=== PATIENT | female | born 1970 ===

== ENCOUNTER 2017-12-20 08:49 | Inpatient (IN) | payer MEDICAID ==
[2017-12-20] MEDS ORDERED: Sodium Chloride 0.9% 1,000 ML IV ONE (09:39)
--- NOTE | 2017-12-20 09:42 | C.PDOC ---
History Of Present Illness 47 years old female presents to ED for complaints of epigastric RUQ abdominal pain that began last night. Denies nausea, vomiting, diarrhea, or allergies to any medications. Patient states Hx of hernia repair 5 months ago. Patient also reports she did not get her menstrual cycle last month and was due for "gall bladder stones test" but did not get it done. Time Seen by Provider: 12/20/17 09:15 Chief Complaint (Nursing): Abdominal Pain History Per: Patient History/Exam Limitations: no limitations Onset/Duration Of Symptoms: Hrs Current Symptoms Are (Timing): Still Present Location Of Pain/Discomfort: RUQ, Epigastric Quality Of Discomfort: "Pain" Associated Symptoms: denies: Fever, Chills, Nausea, Vomiting, Diarrhea Exacerbating Factors: None Alleviating Factors: None Last Bowel Movement: Today Recent travel outside of the [place]: No Abnormal Vaginal Bleeding: No Past Medical History Reviewed: Historical Data, Nursing Documentation, Vital Signs Vital Signs: Last Vital Signs Temp 98.7 F 12/20/17 09:11 Pulse 70 12/20/17 09:11 Resp 18 12/20/17 09:11 BP 122/84 12/20/17 09:11 Pulse Ox 100 12/20/17 09:11 - Medical History PMH: No Chronic Diseases Surgical History: Hernia Repair Family History: States: No Known Family Hx - Social History Hx Alcohol Use: No Hx Substance Use: No Review Of Systems Except As Marked, All Systems Reviewed And Found Negative. Gastrointestinal: Positive for: Abdominal Pain (Epigastric RUQ) Physical Exam - Physical Exam Appears: Non-toxic, No Acute Distress, Other (Uncomfortable ) Skin: Normal Color, Warm, Dry, No Rash Head: Atraumatic, Normacephalic Eye(s): bilateral: Normal Inspection, PERRL, EOMI Oral Mucosa: Moist Neck: Supple Chest: Symmetrical, No Tenderness Cardiovascular: Rhythm Regular, No Murmur Respiratory: Normal Breath Sounds, No Rales, No Rhonchi, No Wheezing Gastrointestinal/Abdominal: Soft, Tenderness (Epigastric RUQ) Extremity: Normal ROM, No Deformity Extremity: Bilateral: Atraumatic, Normal Color And Temperature, Normal ROM Neurological/Psych: Oriented x3, Normal Speech Gait: Steady ED Course And Treatment - Laboratory Results Result Diagrams: 12/21/17 08:43 12/21/17 08:43 O2 Sat by Pulse Oximetry: 100 (RA) Pulse Ox Interpretation: Normal - CT Scan/US Abdomen US Other Rad Studies (CT/US): Read By Radiologist, Radiology Report Reviewed CT/US Interpretation: Date of service: 12/20/2017. HISTORY: abd pain, RUQ. COMPARISON: None. TECHNIQUE: Sonographic evaluation of the right upper quadrant of the abdomen. FINDINGS: LIVER: Measures 16.0 cm in length. N smooth contour however the liver exhibits echogenic parenchyma suggesting fatty infiltration although other infiltrative hepatocellular disease process not completely excluded. Parenchyma. No mass. No intrahepatic bile duct dilatation. GALLBLADDER: Unremarkable. No gallstones. No evidence of pericholecystic fluid or sonographic Lynn sign. COMMON BILE DUCT: Measures 2.0 mm. No stones. No dilatation. PANCREAS: Pancreas incompletely visualized due to body habitus and bowel gas. RIGHT KIDNEY: Measures 10.8 x 4.8 x 5.5 cm in length. Normal echogenicity. No calculus, mass, or hydronephrosis. AORTA: N o aneurysmal dilatation. IVC: Unremarkable. OTHER FINDINGS: None . IMPRESSION: The liver is echogenic which is likely due to fatty infiltration however other infiltrative hepatocellular disease process not excluded.. No evidence of cholelithiasis. Abdomen/Pelvis CT Other Rad Studies (CT/US): Read By Radiologist, Radiology Report Reviewed CT/US Interpretation: Date of service: 12/20/2017. PROCEDURE: CT Abdomen and Pelvis with contrast. HISTORY: Abdominal pain. COMPARISON: None. TECHNIQUE: Contiguous helical/transaxial sections of the abdomen and pelvis performed in standard fashion following intravenous injection of 100 cc Visipaque 320 contrast material. Additional 2D sagittal and coronal reformats generated. Radiation dose: Total exam DLP = 582.77 mGy-cm. This CT exam was performed using one or more of the following dose reduction techniques: Automated exposure control, adjustment of the mA and/or kV according to patient size, and/or use of iterative reconstruction technique. FINDINGS: LOWER THORAX: Unremarkable. Minor passive/dependent type atelectasis both posterior lower lung zones. No evidence of effusion or basilar pneumothorax. Heart is mildly enlarged. Small hiatal hernia is present with minimal wall thickening of the distal esophagus likely due to protrusion of gastric mucosa. Possibility of esophagitis not excluded. LIVER: Liver appears mildly enlarged measuring over 19 cm in CC dimension. No obvious hepatic mass collection or calcification. Portal and splenic veins are opacified. GALLBLADDER AND BILE DUCTS: Gallbladder physiologically distended. No evidence of intraluminal gallbladder calculi. PANCREAS: Pancreas appears slightly atrophic and fatty replaced. No pancreatic mass collection or calcification. SPLEEN: Spleen exhibits normal size and attenuation pattern without mass collection or calcification. ADRENALS: No adrenal lesions. KIDNEYS AND URETERS: Kidneys demonstrate symmetric nephrograms. No evidence of nephrolithiasis or hydronephrosis. VASCULATURE: Unremarkable. No aortic aneurysm. BOWEL: Evaluation of the bowel slightly limited due to lack of oral contrast material. The. Visualized loops of small bowel exhibit normal contour and caliber. No evidence of acute mechanical small bowel obstruction. Stool and air seen throughout the large bowel. No definitive mural wall thickening. APPENDIX: The proximal appendix is dilated measuring nearly 15 mm with mild wall thickening. The mid and distal aspect of the appendix exhibits normal caliber. There appears to be some minimal infiltration changes within the mesentery about the proximal appendix is well. Additionally, there is an elliptical shaped hyperdense focus within the mouth of the appendix. Findings collectively suggest early acute appendicitis. No evidence of discrete fluid or abscess collections.. PERITONEUM: Unremarkable. No free fluid. No free air. Small fat containing umbilical hernia. LYMPH NODES: Unremarkable. No enlarged lymph nodes. BLADDER: Urinary bladder is incompletely distended. No evidence of intraluminal urinary bladder calculi. REPRODUCTIVE: Uterus is enlarged and exhibits lobulated contour with multiple on varying sized rounded low-attenuation foci most consistent with uterine fibroids. Recommend follow-up pelvic ultrasound. Suspect on left ovarian cyst with an adjacent nonspecific calcification. There also appears to be a small right-sided ovarian cyst. BONES: Multilevel degenerative spondylosis of the lower thoracic and lumbar spine. OTHER FINDINGS: None. IMPRESSION: Findings most likely represent early acute appendicitis as detailed above. Multiple uterine fibroids. The probable bilateral ovarian cysts left larger than right. Consider follow-up pelvic ultrasound for further evaluation. Mild hepatomegaly. Discussed with emergency room CARLOS Puga the the at approximately 12:50 p.m. with written down and read back verification. CT Abdomen/pelvis Other Rad Studies (CT/US): Read By Radiologist, Radiology Report Reviewed CT/US Interpretation: Accession No. : [id number]. Patient Name / ID : MIKO SAVAGE / [id number]. Exam Date : 12/20/2017 12:51:07 ( Approved ). Study Comment : Sex / Age : F / 47Y. Creator : Jaime Dale MD. Dictator : Jaime Dael MD. Line Walker : Apricot Packer : Jaime Dale MD. Approver2 : Report Date : 12/20/2017 15:01:59. My Comment : . Date of service: 12/20/2017. PROCEDURE: CT Abdomen and Pelvis with contrast. HISTORY: Abdominal pain. COMPARISON: None. TECHNIQUE: Contiguous helical/transaxial sections of the abdomen and pelvis performed in standard fashion following intravenous injection of 100 cc Visipaque 320 contrast material. Additional 2D sagittal and coronal reformats generated. Radiation dose: Total exam DLP = 582.77 mGy-cm. This CT exam was performed using one or more of the following dose reduction techniques: Automated exposure control, adjustment of the mA and/or kV according to patient size, and/or use of iterative reconstruction technique. FINDINGS: LOWER THORAX: Unremarkable. Minor passive/dependent type atelectasis both posterior lower lung zones. No evidence of effusion or basilar pneumothorax. Heart is mildly enlarged. Small hiatal hernia is present with minimal wall thickening of the distal esophagus likely due to protrusion of gastric mucosa. Possibility of esophagitis not excluded. LIVER: Liver appears mildly enlarged measuring over 19 cm in CC dimension. No obvious hepatic mass collection or calcification. Portal and splenic veins are opacified. GALLBLADDER AND BILE DUCTS: Gallbladder physiologically distended. No evidence of intraluminal gallbladder calculi. PANCREAS: Pancreas appears slightly atrophic and fatty replaced. No pancreatic mass collection or calcification. SPLEEN: Spleen exhibits normal size and attenuation pattern without mass collection or calcification. ADRENALS: No adrenal lesions. KIDNEYS AND URETERS: Kidneys demonstrate symmetric nephrograms. No evidence of nephrolithiasis or hydronephrosis. VASCULATURE: Unremarkable. No aortic aneurysm. BOWEL: Evaluation of the bowel slightly limited due to lack of oral contrast material. The. Visualized loops of small bowel exhibit normal contour and caliber. No evidence of acute mechanical small bowel obstruction. Stool and air seen throughout the large bowel. No definitive mural wall thickening. APPENDIX: The proximal appendix is dilated measuring nearly 15 mm with mild wall thickening. The mid and distal aspect of the appendix exhibits normal caliber. There appears to be some minimal infiltration changes within the mesentery about the proximal appendix is well. Additionally, there is an elliptical shaped hyperdense focus within the mouth of the appendix. Findings collectively suggest early acute appendicitis. No evidence of discrete fluid or abscess collections.. PERITONEUM: Unremarkable. No free fluid. No free air. Small fat containing umbilical hernia. LYMPH NODES: Unremarkable. No enlarged lymph nodes. BLADDER: Urinary bladder is incompletely distended. No evidence of intraluminal urinary bladder calculi. REPRODUCTIVE: Uterus is enlarged and exhibits lobulated contour with multiple on varying sized rounded low-attenuation foci most consistent with uterine fibroids. Recommend follow-up pelvic ultrasound. Suspect on left ovarian cyst with an adjacent nonspecific calcification. There also appears to be a small right-sided ovarian cyst. BONES: Multilevel degenerative spondylosis of the lower thoracic and lumbar spine. OTHER FINDINGS: None. IMPRESSION: Findings most likely represent early acute appendicitis as detailed above. Multiple uterine fibroids. The probable bilateral ovarian cysts left larger than right. Consider follow-up pelvic ultrasound for further evaluation. Mild hepatomegaly. Discussed with emergency room CARLOS Beebe the the the at approximately 12:50 p.m. with written down and read back verification. Progress Note: Administered Protonix, IV fluids, and Zofran. Ordered blood work, urinalysis, and Abdomen US, abdominal CT. Case was d/w Surgeon communication assistant who accepted patient for an admission for appendectomy. Disposition - Disposition Disposition: HOSPITALIZED Disposition Time: 17:05 Condition: FAIR - Clinical Impression Clinical Impression: Acute appendicitis - PA / VISUAL AID EXPERT / Resident Statement MD/DO has reviewed & agrees with the documentation as recorded. - Scribe Statement The provider has reviewed the documentation as recorded by the Rosamaria Geiger All medical record entries made by the Reinaibchano were at my direction and personally dictated by me. I have reviewed the chart and agree that the record accurately reflects my personal performance of the history, physical exam, medic al decision making, and the department course for this patient. I have also personally directed, reviewed, and agree with the discharge instructions and disposition. Decision To Admit - Pt Status Changed To: Hospital Disposition Of: Inpatient - Admit Certification Admit to Inpatient:: After my assessment, the patient will require hospitalization for at least two midnights. This is because of the severity of symptoms shown, intensity of services needed, and/or the medical risk in this patient being treated as an outpatient. - InPatient: Physician Admission Certification:: Patient will need appendectomy - . Bed Request Type: Regular Admitting Physician: Pedro Tidwell Patient Diagnosis: Acute appendicitis
[2017-12-20] MEDS ORDERED: Sodium Chloride 0.9% 1,000 ML ONE (10:08)
[2017-12-20 10:11] LABS: BASO # 0.1 K/uL (0.0-0.2); EOS # 0.1 K/uL (0.0-0.7); EOS % 0.6 % (0.0-4.0); HEMOGLOBIN 14.3 g/dL (11.0-16.0); MEAN CELL VOLUME 86.6 fL (81.0-99.0); MEAN CORPUSCULAR HGB CONC 33.5 g/dL (33.0-37.0); MEAN PLATELET VOLUME 9.7 fL (7.2-11.7); MONO # 0.8 K/uL (0.0-0.8); MONO % 8.3 % (0.0-10.0); NEUT # 6.3 K/uL (1.8-7.0); NEUT % 68.1 % (50.0-75.0); NRBC % 0.1 % (0.0-2.0); RBC 4.91 Mil/uL (3.80-5.20); RED CELL DISTRIBUTION WIDTH 14.1 % (11.5-14.5); WHITE BLOOD COUNT 9.2 K/uL (4.8-10.8)
[2017-12-20 10:30] LABS: HCG,QUALITATIVE URINE NEGATIVE (NEGATIVE)
[2017-12-20 10:37] LABS: SQUAMOUS EPITHIAL 6 /hpf (0-5); URINE BACTERIA RARE (<OCC); URINE BILIRUBIN NEGATIVE (NEGATIVE); URINE BLOOD NEGATIVE (NEGATIVE); URINE CLARITY Clear (Clear); URINE COLOR Yellow (YELLOW); URINE GLUCOSE (UA) NORMAL (Normal); URINE LEUKOCYTE ESTERASE NEG Leu/uL (Negative); URINE PROTEIN NEGATIVE (NEGATIVE); URINE UROBILINOGEN NORMAL mg/dL (0.2-1.0)
[2017-12-20 11:39] LABS: ALB/GLOB RATIO 1.2 (1.0-2.1); ALBUMIN 3.8 g/dL (3.5-5.0); ALT/SGPT 29 U/L (9-52); AST/SGOT 23 U/L (14-36); BLOOD UREA NITROGEN 9 mg/dL (7-17); CALCIUM 8.8 mg/dl (8.6-10.4); GFR NON-AFRICAN AMERICAN > 60; LIPASE 67 U/L (23-300)
--- NOTE | 2017-12-20 11:39 | US ---
Date of service: 12/20/2017 HISTORY: abd pain, RUQ COMPARISON: None. TECHNIQUE: Sonographic evaluation of the right upper quadrant of the abdomen. FINDINGS: LIVER: Measures 16.0 cm in length. N smooth contour however the liver exhibits echogenic parenchyma suggesting fatty infiltration although other infiltrative hepatocellular disease process not completely excluded. Parenchyma. No mass. No intrahepatic bile duct dilatation. GALLBLADDER: Unremarkable. No gallstones. No evidence of pericholecystic fluid or sonographic Lynn sign. COMMON BILE DUCT: Measures 2.0 mm. No stones. No dilatation. PANCREAS: Pancreas incompletely visualized due to body habitus and bowel gas. RIGHT KIDNEY: Measures 10.8 x 4.8 x 5.5 cm in length. Normal echogenicity. No calculus, mass, or hydronephrosis. AORTA: No aneurysmal dilatation. IVC: Unremarkable. OTHER FINDINGS: None . IMPRESSION: The liver is echogenic which is likely due to fatty infiltration however other infiltrative hepatocellular disease process not excluded.. No evidence of cholelithiasis.
[2017-12-20] MEDS ORDERED: Iodixanol 320 MG/ML 100 ML BOTTLE IV ONE (12:47)
--- NOTE | 2017-12-20 15:03 | CT ---
Date of service: 12/20/2017 PROCEDURE: CT Abdomen and Pelvis with contrast HISTORY: Abdominal pain COMPARISON: None. TECHNIQUE: Contiguous helical/transaxial sections of the abdomen and pelvis performed in standard fashion following intravenous injection of 100 cc Visipaque 320 contrast material. Additional 2D sagittal and coronal reformats generated Radiation dose: Total exam DLP = 582.77 mGy-cm. This CT exam was performed using one or more of the following dose reduction techniques: Automated exposure control, adjustment of the mA and/or kV according to patient size, and/or use of iterative reconstruction technique. FINDINGS: LOWER THORAX: Unremarkable. Minor passive/dependent type atelectasis both posterior lower lung zones. No evidence of effusion or basilar pneumothorax. Heart is mildly enlarged. Small hiatal hernia is present with minimal wall thickening of the distal esophagus likely due to protrusion of gastric mucosa. Possibility of esophagitis not excluded. LIVER: Liver appears mildly enlarged measuring over 19 cm in CC dimension. No obvious hepatic mass collection or calcification. Portal and splenic veins are opacified. GALLBLADDER AND BILE DUCTS: Gallbladder physiologically distended. No evidence of intraluminal gallbladder calculi. PANCREAS: Pancreas appears slightly atrophic and fatty replaced. No pancreatic mass collection or calcification. SPLEEN: Spleen exhibits normal size and attenuation pattern without mass collection or calcification. ADRENALS: No adrenal lesions. KIDNEYS AND URETERS: Kidneys demonstrate symmetric nephrograms. No evidence of nephrolithiasis or hydronephrosis. VASCULATURE: Unremarkable. No aortic aneurysm. BOWEL: Evaluation of the bowel slightly limited due to lack of oral contrast material. The. Visualized loops of small bowel exhibit normal contour and caliber. No evidence of acute mechanical small bowel obstruction. Stool and air seen throughout the large bowel. No definitive mural wall thickening. APPENDIX: The proximal appendix is dilated measuring nearly 15 mm with mild wall thickening. The mid and distal aspect of the appendix exhibits normal caliber. There appears to be some minimal infiltration changes within the mesentery about the proximal appendix is well. Additionally, there is an elliptical shaped hyperdense focus within the mouth of the appendix. Findings collectively suggest early acute appendicitis. No evidence of discrete fluid or abscess collections.. PERITONEUM: Unremarkable. No free fluid. No free air. Small fat containing umbilical hernia LYMPH NODES: Unremarkable. No enlarged lymph nodes. BLADDER: Urinary bladder is incompletely distended. No evidence of intraluminal urinary bladder calculi. REPRODUCTIVE: Uterus is enlarged and exhibits lobulated contour with multiple on varying sized rounded low-attenuation foci most consistent with uterine fibroids. Recommend follow-up pelvic ultrasound. Suspect on left ovarian cyst with an adjacent nonspecific calcification. There also appears to be a small right-sided ovarian cyst. BONES: Multilevel degenerative spondylosis of the lower thoracic and lumbar spine. OTHER FINDINGS: None. IMPRESSION: Findings most likely represent early acute appendicitis as detailed above. Multiple uterine fibroids. The probable bilateral ovarian cysts left larger than right. Consider follow-up pelvic ultrasound for further evaluation Mild hepatomegaly. Discussed with emergency room CARLOS Beebe the the the at approximately 12:50 p.m. with written down and read back verification.
[2017-12-20] MEDS ORDERED: Piperacillin/Tazobact 3.375 gm 100 ML IV STA (16:04)
[2017-12-20] MEDS ORDERED: Lactated Ringer's 1,000 ML IV ONE (16:04)
[2017-12-20] MEDS ORDERED: Piperacillin/Tazobact 3.375 gm 100 ML IVPB ONE (16:36)
[2017-12-20] MEDS ORDERED: Lactated Ringer's 1,000 ML ONE (16:36)
--- NOTE | 2017-12-20 16:36 | CP.PCM.HP ---
<Karrie Lau - Last Filed: 12/20/17 16:49> History of Present Illness - History of Present Illness History of Present Illness: H&P for Dr. Pedro Tidwell CC: Abdominal pain Admitting diagnosis: acute appendicitis Patent is a 47F who has a past surgical history of 3 c-sections and a laparoscopic ventral hernia repair with mesh at [facility] 6 months ago. Patient came to ED because she was having abdominal pain since last night. Patient states that the pain started junie-umbilically, but has started to radiate to the right abdomen. Pain is constant, and did not improve with bowel movement last night. Patient states that she has some intermittent nausea and occasional constipation, but no vomiting, diarrhea, fevers, chills, dysuria, hematuria, chest pain, SOB, or any other symptoms. Last BM was last night and it was hard but normal color, no blood. PMH: denies PSH: laparoscopic ventral hernia repair with mesh 06/2017, 3 c-sections ALL: NKDA Social: denies smoking, ETOH use, and illicit drugs Present on Admission - Present on Admission Any Indicators Present on Admission: No Review of Systems - Review of Systems All systems: reviewed and no additional remarkable complaints except (as per HPI) Past Patient History - Past Medical History & Family History Past Medical History?: Yes Past Family History: Reviewed and not pertinent - Past Social History Smoking Status: Never Smoked Alcohol: None Drugs: Denies - PSYCHIATRIC Hx Substance Use: No - SURGICAL HISTORY Hx Surgeries: Yes Hx Section: Yes (3) Hx Herniorrhaphy: Yes (06/2017 laparoscopic ventral hernia repair with mesh @ [facility]) - ANESTHESIA Hx Anesthesia: No Meds Allergies/Adverse Reactions: Allergies Allergy/AdvReac Type Severity Reaction Status Date / Time No Known Allergies Allergy Unverified 12/20/17 09:13 Physical Exam - Constitutional Appears: Well, Non-toxic, No Acute Distress - Head Exam Head Exam: ATRAUMATIC, NORMOCEPHALIC - Eye Exam Eye Exam: Normal appearance. absent: Conjunctival injection, Scleral icterus - ENT Exam ENT Exam: Mucous Membranes Moist, Normal Oropharynx - Respiratory Exam Respiratory Exam: NORMAL BREATHING PATTERN. absent: Accessory Muscle Use, Respiratory Distress - GI/Abdominal Exam GI & Abdominal Exam: Soft, Tenderness (RLQ severe tenderness to palpation, RUQ moderate tenderness, positive rovsing's sign). absent: Distended, Mass, Rebound, Rigid - Extremities Exam Extremities exam: Positive for: pedal pulses present. Negative for: calf tenderness, pedal edema - Neurological Exam Neurological exam: Alert, Oriented x3 - Psychiatric Exam Psychiatric exam: Normal Affect, Normal Mood - Skin Skin Exam: Dry, Intact, Normal Color, Warm Results - Vital Signs Recent Vital Signs: Last Vital Signs Temp 98.6 F 12/20/17 14:57 Pulse 71 12/20/17 14:57 Resp 16 12/20/17 14:57 BP 109/73 12/20/17 14:57 Pulse Ox 100 12/20/17 15:13 - Labs Result Diagrams: 12/20/17 10:02 12/20/17 11:09 Labs: Laboratory Results - last 24 hr 12/20/17 12/20/17 12/20/17 10:02 10:02 11:09 WBC 9.2 RBC 4.91 Hgb 14.3 Hct 42.5 MCV 86.6 MCH 29.0 MCHC 33.5 RDW 14.1 Plt Count 292 MPV 9.7 Neut % (Auto) 68.1 Lymph % (Auto) 22.0 Stone % (Auto) 8.3 Eos % (Auto) 0.6 Baso % (Auto) 1.0 Neut # (Auto) 6.3 Lymph # (Auto) 2.0 Stone # (Auto) 0.8 Eos # (Auto) 0.1 Baso # (Auto) 0.1 Sodium 139 Potassium 3.9 Chloride 103 Carbon Dioxide 24 Anion Gap 16 BUN 9 Creatinine 0.5 L Est GFR ( Amer) > 60 Est GFR (Non-Af Amer) > 60 Random Glucose 101 Calcium 8.8 Total Bilirubin 0.4 AST 23 ALT 29 Alkaline Phosphatase 86 Total Protein 7.1 Albumin 3.8 Globulin 3.3 Albumin/Globulin Ratio 1.2 Lipase 67 Urine Color Yellow Urine Clarity Clear Urine pH 6.0 Ur Specific [place] 1.012 Urine Protein Negative Urine Glucose (UA) Normal Urine Ketones Trace Urine Blood Negative Urine Nitrate Negative Urine Bilirubin Negative Urine Urobilinogen Normal Ur Leukocyte Esterase Neg Urine WBC (Auto) < 1 Urine RBC (Auto) < 1 Ur Squamous Epith Cells 6 H Urine Bacteria Rare Urine HCG, Qual Negative - Imaging and Cardiology CT scan - abdomen Status: Image reviewed by me, Report reviewed by me CT scan - pelvis Status: Image reviewed by me, Report reviewed by me US - abdomen Status: Image reviewed by me, Report reviewed by me Assessment & Plan - Assessment and Plan (Free Text) Assessment: 47F with acute appendicitis, currently stable Plan: OR 107 AM for appendectomy Admit to med/surgery floor NPO IVF IV zosyn PRN pain medication PT/PTT, EKG urine BHCG is negative Repeat CBC/BMP in AM SCD's Discussed with Dr. Tidwell, who agrees with above Karrie Lau PGY2 <Pedro Tidwell - Last Filed: 12/21/17 08:46> Results - Vital Signs Recent Vital Signs: Last Vital Signs Temp 98.8 F 12/21/17 07:45 Pulse 75 12/21/17 07:45 Resp 20 12/21/17 07:45 BP 103/64 12/21/17 07:45 Pulse Ox 98 12/21/17 07:45 - Labs Result Diagrams: 12/20/17 10:02 12/20/17 11:09 Labs: Laboratory Results - last 24 hr 12/20/17 12/20/17 12/20/17 10:02 10:02 11:09 WBC 9.2 RBC 4.91 Hgb 14.3 Hct 42.5 MCV 86.6 MCH 29.0 MCHC 33.5 RDW 14.1 Plt Count 292 MPV 9.7 Neut % (Auto) 68.1 Lymph % (Auto) 22.0 Stone % (Auto) 8.3 Eos % (Auto) 0.6 Baso % (Auto) 1.0 Neut # (Auto) 6.3 Lymph # (Auto) 2.0 Stone # (Auto) 0.8 Eos # (Auto) 0.1 Baso # (Auto) 0.1 PT INR APTT Sodium 139 Potassium 3.9 Chloride 103 Carbon Dioxide 24 Anion Gap 16 BUN 9 Creatinine 0.5 L Est GFR ( Amer) > 60 Est GFR (Non-Af Amer) > 60 Random Glucose 101 Calcium 8.8 Total Bilirubin 0.4 AST 23 ALT 29 Alkaline Phosphatase 86 Total Protein 7.1 Albumin 3.8 Globulin 3.3 Albumin/Globulin Ratio 1.2 Lipase 67 Urine Color Yellow Urine Clarity Clear Urine pH 6.0 Ur Specific [place] 1.012 Urine Protein Negative Urine Glucose (UA) Normal Urine Ketones Trace Urine Blood Negative Urine Nitrate Negative Urine Bilirubin Negative Urine Urobilinogen Normal Ur Leukocyte Esterase Neg Urine WBC (Auto) < 1 Urine RBC (Auto) < 1 Ur Squamous Epith Cells 6 H Urine Bacteria Rare Urine HCG, Qual Negative 12/20/17 17:10 WBC RBC Hgb Hct MCV MCH MCHC RDW Plt Count MPV Neut % (Auto) Lymph % (Auto) Stone % (Auto) Eos % (Auto) Baso % (Auto) Neut # (Auto) Lymph # (Auto) Stone # (Auto) Eos # (Auto) Baso # (Auto) PT 13.5 H INR 1.2 APTT 26 Sodium Potassium Chloride Carbon Dioxide Anion Gap BUN Creatinine Est GFR ( Amer) Est GFR (Non-Af Amer) Random Glucose Calcium Total Bilirubin AST ALT Alkaline Phosphatase Total Protein Albumin Globulin Albumin/Globulin Ratio Lipase Urine Color Urine Clarity Urine pH Ur Specific [place] Urine Protein Urine Glucose (UA) Urine Ketones Urine Blood Urine Nitrate Urine Bilirubin Urine Urobilinogen Ur Leukocyte Esterase Urine WBC (Auto) Urine RBC (Auto) Ur Squamous Epith Cells Urine Bacteria Urine HCG, Qual Assessment & Plan - Assessment and Plan (Free Text) Plan: I personally saw and examined the patient at bedside with resident staff, reviewed CT images and report and agree with above. [address] confirmed appendicitis with appendicolith. Focal RLQ tenderness on exam. Also has recurr ent umbilical hernia on CT but not currently symptomatic. I recommend she undergo laparoscopic appendectomy. Risks and benefits of the operation, including but not limited to, bleeding, wound infection, abscess, bowel obstruction, staple leak, and need for open surgery discussed. She understands these risks and wishes to proceed. All questions answered. Informed consent signed.
[2017-12-20 17:32] LABS: INR 1.2; PROTHROMBIN TIME 13.5 SECONDS (9.7-12.2)
[2017-12-20] MEDS: Piperacill/Tazo 3.375gm in Dex 3.375 GM/50 ML BAG IVPB SCH (23:05)
[2017-12-21] MEDS: Piperacill/Tazo 3.375gm in Dex 3.375 GM/50 ML BAG IVPB SCH ×3 (05:30→16:31)
[2017-12-21] MEDS ORDERED: Lidocaine Hydrochloride 0 ML INJ ONE (08:15)
[2017-12-21] MEDS ORDERED: Bupivacaine 0.25% 20 ML INJ IJ ONE (08:15)
[2017-12-21] MEDS ORDERED: Propofol 10 mg/ml Inj (20 ML) ONE (08:46)
[2017-12-21] MEDS ORDERED: Rocuronium 10 mg/ml (5 ml) ONE (08:46)
[2017-12-21] MEDS ORDERED: Midazolam 2 MG/2 ML VIAL ONE (08:46)
[2017-12-21] MEDS ORDERED: Succinylcholine Chloride 20 mg/ml Syr (5 ml) IV ONE (08:46)
[2017-12-21 08:49] LABS: BASO % 0.5 % (0.0-2.0); EOS % 0.5 % (0.0-4.0); LYMPH # 1.7 K/uL (1.0-4.3); LYMPH % 17.9 % (20.0-40.0); MEAN CELL VOLUME 86.8 fL (81.0-99.0); MEAN CORPUSCULAR HEMOGLOBIN 29.1 pg (27.0-31.0); MEAN CORPUSCULAR HGB CONC 33.6 g/dL (33.0-37.0); MEAN PLATELET VOLUME 9.7 fL (7.2-11.7); MONO # 0.7 K/uL (0.0-0.8); MONO % 7.1 % (0.0-10.0); NRBC % 0.1 % (0.0-2.0); RBC 4.19 Mil/uL (3.80-5.20); RED CELL DISTRIBUTION WIDTH 14.1 % (11.5-14.5); WHITE BLOOD COUNT 9.4 K/uL (4.8-10.8)
[2017-12-21 08:51] LABS: HEMOGLOBIN 12.2 g/dL (11.0-16.0)
[2017-12-21] MEDS ORDERED: Lidocaine/Epinephrine 1% 1:100000 10 ML IJ ONE (09:00)
[2017-12-21 09:09] LABS: BLOOD UREA NITROGEN 7 mg/dL (7-17); CALCIUM 8.3 mg/dl (8.6-10.4); GFR NON-AFRICAN AMERICAN > 60
[2017-12-21] MEDS ORDERED: Piperacillin/Tazobact 3.375 gm 100 ML IVPB ONE (09:09)
[2017-12-21] MEDS ORDERED: Phenylephrine 10 mg/ml Inj ONE (09:18)
[2017-12-21] MEDS ORDERED: HYDROmorphone 0.5 mg/0.5 ml ISec IVP PRN (09:33)
[2017-12-21] MEDS ORDERED: Neostigmine Methylsulfate 3mg/3ml Syringe IV ONE (09:38)
[2017-12-21] MEDS ORDERED: Morphine 4 MG/ML VIAL ONE (10:03)
--- NOTE | 2017-12-21 10:20 | PCM.OP ---
Operative Report - Operative Report Date of Surgery/Procedure: 12/21/17 Time of Surgery/Procedure: 09:00 Surgeon: Pedro Tidwell MD [employer] Fare Collector: Rick Moyer DO (PGY3 resident) Anesthesia/Sedation: General endotracheal; 1% lidocaine + 0.25% Marcaine mix local anesthesia Pre-Operative Diagnosis: Acute appendicitis with focal peritonitis and fecolith. Obesity. BMI 32. s/p ventral hernia repair with mesh Post-Operative Diagnosis: Acute appendicitis with focal peritonitis and fecolith. Obesity. BMI 32. s/p ventral hernia repair with mesh Indication for Surgery: This is a 47 year old female who presented to the emergency department earlier with 24 hours of abdominal pain and CT scan findings consistent with acute appendicitis, dilated appendix with fecolith at base, no perforation or abscess. She has a history of ventral incisional hernia repair with mesh performed at another institution within the last year. Risks and benefits of laparoscopic possible open, appendectomy discussed as documented in clinical chart. All questions answered and informed consent signed prior to operation. Operative Findings: Dilated, inflamed appendix without evidence of perforation. Scant fluid in right paracolic gutter and pelvic side wall. Significant omental adhesions, with omentum found to be draping across anterior abdominal wall and previously placed mesh. Appendix removed intact; Mesoappendiceal and cecal staple lines in tact without leak or bleeding at end of case. Procedure/Operation Description: PROCEDURE PERFORMED: Laparoscopic Appendectomy. DETAILS OF PROCEDURE: The patient was given a preoperative dose of Zosyn 20 minutes prior to incision. SCD boots were placed for DVT prophyl axis. Secure straps placed above the knees. Left arm tucked at patients side in neutral position. Right arm placed out on padded armboard. An orogastric tube placed in order to empty the stomach after the induction of general anesthesia. Upper body warmer placed. Small ariza was placed to decompress the bladder (and removed at the end of case). No hair removal necessary. The abdomen was prepped and draped in sterile fashion. Timeout was perforemd prior to incison. All skin incisions were made using an 11 blade scalpel after being pre-anesthetized with local anesthesia. Abdominal entry was gained using an 5mm optically viewing trocar with A 5mm 0-degree laparoscope placed in the left upper quadrant, given her multiple midline surgeries and history of ventral hernia repair with mesh. All layers of the abdominal wall were seen and peritoneal entry directly visualized. The abdomen was then insufflated with C02 pneumoperitoneum to 15mmhg. 5mm 0-degree laparoscope was then inserted and the abdomen was generally inspected. Significant omental adhesion to anterior abdominal wall noted as above. We then placed 2 additional 5mm working ports under direct vision, all on the left hemiabdomen, one in left lower quadrant, lateral to the rectus and inferior epigastric vessels. A biploar energy device was used to take down omental adhesionas to abdominal wall to allow visualization of the appenxdix and placement of additional trocar. Next a 12mm trocar was inserted in the left lateral midl abdomen at the level of the umbilicus under direct vision. Patient was placed in trendelenberg and left side down. The abdomen was generally insepected and no other pathology found. Scant fluid in right gutter and pelvic side wall suctioned. Small bowel delivered form pelvis and right colon taenia traced down to the base of the appendix. Dilated, inflamed appendix without perforation noted. A mesenteric window was created bluntly in between base of appendix at cecum and mesoappendix, and 45m linear stapler vascular white load was used to ligate and divide the appendiceal pedicle. The staple line was inspected and 2 additional 5mm clips were placed on the staple pline for additional hemostasis. Next a 45 mm blue load linear staple was used to divide the appendix at its base, being sure not to incorporate cecum. The specimen was placed in an Endocatch bag and removed from the 12mm trocar. The trocar reinserted and we next turned our attention to inspecting the staple line. The staple lines were carefully inspected and appeared hemostatic. An additional 5mm clip was placed on the medial edge of cecal staple line to control minor oozing. Hemostasis was acheived. A transfacial suture passer was used to close the 12mm port site using one interrupted 0-vycrl suture, under d irect vision. The abdomen was then desufflated. The skin was closed with 4-0 monocryl and dermabond. All sponge, needle and instrument counts were correct. The patient was extubated in the operating room, and taken to the recovery room in stable condition. I was present for the entirety of the operation. Estimated Blood Loss: 20mL Complications: none Specimen: appendix Discharge & Condition: above
[2017-12-21] MEDS ORDERED: Oxycodone/Acetaminophen 5/325 mg Tab PO PRN (10:25)
--- NOTE | 2017-12-21 10:28 | PCM.SURG1 ---
Surgeon's Initial Post Op Note - Surgeon's Notes Surgeon: Dr. Tdiwell Associate Application Developer: Rick Moyer PGY3 Type of Anesthesia: General Endo, Local Anesthesia Administered By: Dr. Lo Pre-Operative Diagnosis: acute appendictitis Operative Findings: Acute appendicitis, extensive adhesions. Post-Operative Diagnosis: Same Operation Performed: Laparoscopic appendectomy , lysis of adhesions. Specimen/Specimens Removed: Appendix Estimated Blood Loss: EBL {In ML}: 20 Blood Products Given: N/A Drains Used: No Drains Post-Op Condition: Good Date of Surgery/Procedure: 12/21/17 Time of Surgery/Procedure:
[2017-12-21] MEDS ORDERED: Lactated Ringer's 1,000 ML IV ONE (11:22)
[2017-12-21 11:39] VITALS: PULSE 81; RESP 20
[2017-12-21] MEDS ORDERED: Potassium Chloride 20 mEq ER Tab PO SCH (11:45)
[2017-12-21 16:32] VITALS: BP 96/60; TEMP 98.4
--- NOTE | 2017-12-21 16:53 | CP.PCM.DIS ---
Provider - Provider Date of Admission: 12/20/17 16:03 Attending physician: Pedro Tidwell MD Time Spent in preparation of Discharge (in minutes): 45 Diagnosis - Discharge Diagnosis (1) S/P appendectomy Status: Acute Hospital Course - Lab Results Lab Results: Most Recent Lab Values WBC 9.4 K/uL (4.8-10.8) 12/21/17 08:43 RBC 4.19 Mil/uL (3.80-5.20) 12/21/17 08:43 Hgb 12.2 g/dL (11.0-16.0) D 12/21/17 08:43 Hct 36.4 % (34.0-47.0) 12/21/17 08:43 MCV 86.8 fL (81.0-99.0) 12/21/17 08:43 MCH 29.1 pg (27.0-31.0) 12/21/17 08:43 MCHC 33.6 g/dL (33.0-37.0) 12/21/17 08:43 RDW 14.1 % (11.5-14.5) 12/21/17 08:43 Plt Count 252 K/uL (130-400) 12/21/17 08:43 MPV 9.7 fL (7.2-11.7) 12/21/17 08:43 Neut % (Auto) 74.0 % (50.0-75.0) 12/21/17 08:43 Lymph % (Auto) 17.9 % (20.0-40.0) L 12/21/17 08:43 Boyd % (Auto) 7.1 % (0.0-10.0) 12/21/17 08:43 Eos % (Auto) 0.5 % (0.0-4.0) 12/21/17 08:43 Baso % (Auto) 0.5 % (0.0-2.0) 12/21/17 08:43 Neut # (Auto) 7.0 K/uL (1.8-7.0) 12/21/17 08:43 Lymph # (Auto) 1.7 K/uL (1.0-4.3) 12/21/17 08:43 Boyd # (Auto) 0.7 K/uL (0.0-0.8) 12/21/17 08:43 Eos # (Auto) 0.0 K/uL (0.0-0.7) 12/21/17 08:43 Baso # (Auto) 0.0 K/uL (0.0-0.2) 12/21/17 08:43 PT 13.5 SECONDS (9.7-12.2) H 12/20/17 17:10 INR 1.2 12/20/17 17:10 APTT 26 SECONDS (21-34) 12/20/17 17:10 Sodium 139 mmol/L (132-148) 12/21/17 08:43 Potassium 3.4 mmol/L (3.6-5.2) L 12/21/17 08:43 Chloride 104 mmol/L (98-107) 12/21/17 08:43 Carbon Dioxide 26 mmol/L (22-30) 12/21/17 08:43 Anion Gap 12 (10-20) 12/21/17 08:43 BUN 7 mg/dL (7-17) 12/21/17 08:43 Creatinine 0.6 mg/dL (0.7-1.2) L 12/21/17 08:43 Est GFR ( Amer) > 60 10 08:43 Est GFR (Non-Af Amer) > 60 12/21/17 08:43 Random Glucose 85 mg/dL (65-105) 12/21/17 08:43 Calcium 8.3 mg/dl (8.6-10.4) L 12/21/17 08:43 Total Bilirubin 0.4 mg/dL (0.2-1.3) 12/20/17 11:09 AST 23 U/L (14-36) 12/20/17 11:09 ALT 29 U/L (9-52) 12/20/17 11:09 Alkaline Phosphatase 86 U/L (38-126) 12/20/17 11:09 Total Protein 7.1 g/dL (6.3-8.3) 12/20/17 11:09 Albumin 3.8 g/dL (3.5-5.0) 12/20/17 11:09 Globulin 3.3 gm/dL (2.2-3.9) 12/20/17 11:09 Albumin/Globulin Ratio 1.2 (1.0-2.1) 12/20/17 11:09 Lipase 67 U/L (23-300) 12/20/17 11:09 Urine Color Yellow (YELLOW) 12/20/17 10:02 Urine Clarity Clear (Clear) 12/20/17 10:02 Urine pH 6.0 (5.0-8.0) 12/20/17 10:02 Ur Specific [place] 1.012 (1.003-1.030) 12/20/17 10:02 Urine Protein Negative mg/dL (NEGATIVE) 12/20/17 10:02 Urine Glucose (UA) Normal mg/dL (Normal) 12/20/17 10:02 Urine Ketones Trace mg/dL (NEGATIVE) 12/20/17 10:02 Urine Blood Negative (NEGATIVE) 12/20/17 10:02 Urine Nitrate Negative (NEGATIVE) 12/20/17 10:02 Urine Bilirubin Negative (NEGATIVE) 12/20/17 10:02 Urine Urobilinogen Normal mg/dL (0.2-1.0) 12/20/17 10:02 Ur Leukocyte Esterase Neg Jules/uL (Negative) 12/20/17 10:02 Urine WBC (Auto) < 1 /hpf (0-5) 12/20/17 10:02 Urine RBC (Auto) < 1 /hpf (0-3) 12/20/17 10:02 Ur Squamous Epith Cells 6 /hpf (0-5) H 12/20/17 10:02 Urine Bacteria Rare (<OCC) 12/20/17 10:02 Urine HCG, Qual Negative (NEGATIVE) 12/20/17 10:02 - Hospital Course Hospital Course: Patent is a 47F who has a past surgical history of 3 c-sections and a laparoscopic ventral hernia repair with mesh at [facility] 6 months ago. Patient came to ED because she was having abdominal pain since last night. Patient states that the pain started junie-umbilically, but has started to radiate to the right abdomen. Pain is constant, and did not improve with bowel movement last night. Patient states that she has some intermittent nausea and occasional constipation, but no vomiting, diarrhea, fevers, chills, dysuria, hematuria, chest pain, SOB, or any other symptoms. Last BM was last night and it was hard but normal color, no blood. The following day pt underwent surgery for lap appendectomy and tolerated it well. Pain controlled. Pt wishes to go home PMH: denies PSH: laparoscopic ventral hernia repair with mesh 06/2017, 3 c-sections ALL: NKDA Social: denies smoking, ETOH use, and illicit drugs - Date & Time of H&P Date of H&P: 12/20/17 Discharge Exam - Head Exam Head Exam: ATRAUMATIC, NORMOCEPHALIC - Eye Exam Eye Exam: EOMI, Normal appearance, PERRL Pupil Exam: NORMAL ACCOMODATION, PERRL - ENT Exam ENT Exam: Mucous Membranes Moist - Respiratory Exam Respiratory Exam: UNREMARKABLE - Cardiovascular Exam Cardiovascular Exam: REGULAR RHYTHM - GI/Abdominal Exam GI & Abdominal Exam: Soft. absent: Distended, Firm Additional comments: Incision C/D/I - Extremities Exam Extremities exam: full ROM - Back Exam Back exam: NORMAL INSPECTION - Neurological Exam Neurological exam: Alert, CN II-XII Intact, Normal Gait, Oriented x3, Reflexes Normal - Psychiatric Exam Psychiatric exam: Normal Affect, Normal Mood - Skin Skin Exam: Dry, Intact, Normal Color, Warm Discharge Plan - Discharge Medications Prescriptions: Docusate Sodium [Colace] 100 mg PO DAILY #10 capsule Ibuprofen 600 mg PO Q4 #30 capsule oxyCODONE/Acetaminophen [Percocet 5/325 mg Tab] 2 ea PO Q4 PRN #30 tab PRN Reason: Pain, Moderate (4-7) - Follow Up Plan Condition: GOOD Disposition: HOME/ ROUTINE Additional Instructions: follow up at Dr. Tidwell's office in 3-4 weeks. No heavy lifitng for 1 month \ Take pain med as needed. Take stool softer daily . Referrals: Pedro Tidwell MD [Staff Provider] -
[2017-12-21 22:37] VITALS: O2SAT 100
--- NOTE | 2017-12-22 21:05 | CARD ---
APPROVED REPORT Date of service: 12/20/2017 EKG Measurement Heart [id number] <Conclusion> Normal sinus rhythm Left axis deviation Abnormal ECG
[2017-12-23] MEDS ORDERED: Pneumococcal 23-Valent Vaccine IM ONE (10:00)
[2017-12-23] MEDS ORDERED: Influenza Vaccine 60 MCG/0.5 ML SYR (3 yr & up) IM ONE (10:05)
== END 2017-12-21 18:40 | disposition home or self-care (01) | DRG 223 ==
LOC: C.ER 08:49 → C.9E 16:03 → C.3T 21:58
PROVIDERS: ADMIT Surgery; ATTEND Surgery
PROC: 0DTJ0ZZ Resection of Appendix, Open Approach (ICD-10-PCS; principal; 2017-12-20)
PROC: 0DJD4ZZ Inspection of Lower Intestinal Tract, Percutaneous Endoscopic Approach (ICD-10-PCS; 2017-12-20)
DX: K35.80 Unspecified acute appendicitis (principal); K66.8 Other specified disorders of peritoneum; K66.0 Peritoneal adhesions (postprocedural) (postinfection); K59.00 Constipation, unspecified; Z98.891 History of uterine scar from previous surgery